=== PATIENT | female | born 1995 | race Caucasian/White ===

== ENCOUNTER 2019-03-15 15:23 | Emergency (ER) | payer OTHER ==
[~2019-03-15] VITALS: Ht 180.3 cm; Wt 70.8 kg
== END 2019-03-15 22:45 | disposition home or self-care (01) ==
LOC: ER 15:23
DX: S50.812A Abrasion of left forearm, initial encounter (principal); M79.632 Pain in left forearm; V49.9XXA Car occupant (driver) (passenger) injured in unspecified traffic accident, initial encounter; Y93.89 Activity, other specified; Y92.488 Other paved roadways as the place of occurrence of the external cause; Y99.8 Other external cause status